=== PATIENT | female | born 1970 | race Hispanic/Latino ===

== ENCOUNTER 2020-10-12 09:11 | Outpatient (CLI) | payer BC ==
--- NOTE | 2020-10-12 09:56 | XRay Report ---
LUMBOSACRAL SPINE 3 VIEWS INDICATION: BACK PAIN. COMPARISON: None. IMPRESSION: Bone mineralization appears normal. There is normal alignment. 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 The remaining levels are within normal limits. The facet joints are in appropriate relationship. No significant facet arthropathy is detected. The sacrum and SI joints are unremarkabl e. No acute osseous or soft tissue abnormality. Signer Name: Terrell Mcintyre Jr, MD Signed: 10/12/2020 9:51 AM Workstation Name: [id number]
== END 2020-10-12 09:12 | disposition home or self-care (01) ==
LOC: XRAY 09:11
PROVIDERS: ATTEND Physical Medicine & Rehabilitation
DX: M47.816 Spondylosis without myelopathy or radiculopathy, lumbar region (principal)
CPT/HCPCS: 72100